=== PATIENT | female | born 1990 | race Caucasian/White ===

== ENCOUNTER 2016-08-16 10:24 | Emergency (ER) | payer MEDICAID, OTHER ==
[~2016-08-16] VITALS: Ht 157.5 cm; Wt 90.0 kg
[~2016-08-16 10:24] MED LIST: BACITUD TOP; BACTDS PO; CEPH-443 PO; CLIN-73 PO; LORA-441 PO; MUPI22OI2 TOP; PREN-29 PO
[2016-08-16 10:27] VITALS: Ht 157.5 cm; Wt 90.0 kg
[2016-08-16] MEDS ORDERED: ONDANSETRON (ODT) 4 MG TAB ODT STA (11:20)
--- NOTE | 2016-08-16 11:23 | ERD ---
ER Documentation Chief Complaint Date/Time DATE: 08/16/16 TIME: 11:21 Chief Complaint nevarez/ right ear pain x 3 days HPI This is a 25-year-old female that presents to the ER with right-sided headache for the last 3 days. Patient has a past medical history of migraine headaches. Patient states that headache is severe and constant and radiates down to her right ear and her right jaw and into the right side of her neck. Patient does admit to photophobia. Headache has been intermittent over the last 3 days patient takes Excedrin and this helps headache for a few hours, however headache always comes back. Headache is described as a sharp stabbing pain. Patient admits to nausea however denies vomiting. She denies any neck stiffness. Patient denies any vision loss or vision changes. She denies any head trauma. ROS 12 point review of systems was done, all negative except per HPI. Medications Home Meds Active Scripts Hydrocodone/Acetaminophen ([place] 5-325 Tablet) 1 Each Tablet, 1 TAB PO Q6H Y for PAIN, #20 TAB Prov:VAHE ASHER 08/16/16 Ibuprofen* (Motrin*) 600 Mg Tab, 600 MG PO Q6, #30 TAB Prov:VAHE ASHER 08/16/16 Sulfamethoxazole-Trimethoprim* (Bactrim* DS) 800-160 Mg Tab, 1 TAB PO BID for 7 Days, TAB Prov:JOHANNE NDIAYE PA-C 11/09/15 Lorazepam* (Ativan*) 0.5 Mg Tablet, 0.5 MG PO Q8, #4 TAB Prov:JOHANNE NDIAYE PA-C 07/17/15 Sulfamethoxazole-Trimethoprim* (Bactrim* DS) 800-160 Mg Tab, 1 TAB PO BID for 10 Days, TAB Prov:JOHANNE NDIAYE PA-C 03/08/15 Cephalexin* (Keflex*) 500 Mg Capsule, 500 MG PO QID for 7 Days, CAP Prov:VANESSA HALL MD 02/22/15 Mupirocin* (Bactroban*) 2% -22 Gram Oint...g., 1 APPLIC TOP BID for 7 Days, EA Prov:VANESSA HALL MD 02/22/15 Bacitracin* (Bacitracin Oint (UD)*) 1 Applic Oint, 1 APPLIC TOP ONCE, #30 PKT APPLY TO Prov:RANGEL,LA M MD 02/21/15 Clindamycin Hcl* (Clindamycin Hcl*) 300 Mg Capsule, 300 MG PO QID for 10 Days, CAP Prov:LA RANGEL MD 02/21/15 Reported Medications Vit-Fe Fumarate-FA* (Juan Tablet*) 1 Tab Tablet, 1 TAB PO DAILY, TAB 11/16/14 Allergies Allergies: Coded Allergies: Penicillins (Verified Allergy, Mild, RASH, 03/08/15) PMhx/Soc Medical and Surgical Hx: pt denies Medical Hx, pt denies Surgical Hx History of Surgery: No Anesthesia Reaction: No Hx Neurological Disorder: No Hx Respiratory Disorders: No Hx Cardiac Disorders: No Hx Psychiatric Problems: No Hx Miscellaneous Medical Probl: No Hx Alcohol Use: No Hx Substance Use: No Hx Tobacco Use: No Physical Exam Vitals Vital Signs Date Time Temp Pulse Resp B/P Pulse Ox O2 Delivery O2 Flow Rate FiO2 08/16/16 10:27 98.1 89 18 117/82 99 Physical Exam GENERAL: The patient is well developed and appropriate for usual state of health , in no apparent distress. HEENT: Atraumatic. Conjunctivae are pink. Pupils equal, round, and reactive to light. Extraocular muscles are grossly intact. Bilateral tympanic membranes are clear with no evidence of erythema, bulging or perforation. No sinus tenderness. NECK: C-spine is soft and supple. There is no cervical lymphadenopathy. CHEST: Clear to auscultation bilaterally. There are no rales, wheezes or rhonchi. HEART: Regular rate and rhythm. No murmurs, clicks, rubs or gallops. EXTREMITIES: Equal pulses bilaterally. There is no peripheral clubbing, cyanosis or edema. No focal swelling or erythema. Full range of motion. Grossly neurovascularly intact. NEURO: Alert and oriented. Cranial nerves II through XII are intact. Motor strength in all 4 extremities with 5/5 strength. Sensation grossly intact. Normal speech and gait. Negative Rhomberg. +2 DTRs. SKIN: There is no apparent rash or petechia. The skin is warm and dry. Result Diagram: 08/16/16 1245 08/16/16 1245 Results 24 hrs Laboratory Tests Test 08/16/16 12:45 08/16/16 12:51 Alanine Aminotransferase (ALT/SGPT) 35IU/L Albumin 3.9g/dl Albumin/Globulin Ratio 1.05 Alkaline Phosphatase 96IU/L Anion Gap 18 Aspartate Amino Transf (AST/SGOT) 21IU/L Basophils # 0.010^3/ul Basophils % 0.3% Blood Morphology Comment Blood Urea Nitrogen 7mg/dl Calcium Level 9.2mg/dl Carbon Dioxide Level 23mmol/L Chloride Level 105mmol/L Creatinine 0.53mg/dl Direct Bilirubin 0.00mg/dl Eosinophils # 0.110^3/ul Eosinophils % 0.9% Globulin 3.70g/dl Glucose Level 97mg/dl Hematocrit 40.3% Hemoglobin 13.4g/dl Indirect Bilirubin 0.1mg/dl Lymphocytes # 2.410^3/ul Lymphocytes % 26.3% Mean Corpuscular Hemoglobin 28.8pg Mean Corpuscular Hemoglobin Concent 33.4g/dl Mean Corpuscular Volume 86.3fl Mean Platelet Volume 9.4fl Monocytes # 0.510^3/ul Monocytes % 5.2% Neutrophils # 6.210^3/ul Neutrophils % 67.3% Nucleated Red Blood Cells # 0.010^3/ul Nucleated Red Blood Cells % 0.0/100WBC Platelet Count 91171^3/UL Potassium Level 3.9mmol/L Red Blood Count 4.6710^6/ul Red Cell Distribution Width 14.0% Sodium Level 142mmol/L Total Bilirubin 0.1mg/dl Total Protein 7.6g/dl White Blood Count 9.310^3/ul Urine Bilirubin NEGATIVE Urine Clarity HAZY Urine Color LT. YELLOW Urine Glucose NEGATIVE% Urine Hemoglobin NEGATIVE Urine Ketones NEGATIVE Urine Leukocyte Esterase TRACE Urine Microscopic RBC NONE SEEN/HPF Urine Microscopic WBC 0-2/HPF Urine Nitrite NEGATIVE Urine Specific [place] 1.020 Urine Squamous Epithelial Cells MODERATE Urine Total Protein NEGATIVE Urine Urobilinogen 0.2 E.U./dL Urine pH 6.0 Current Medications Medications (Trade) Dose Ordered Sig/Laura Route PRN Reason Start Time Stop Time Status Last Admin Dose Admin Naproxen (Naprosyn) 500 mg ONCE ONCE PO 08/16/16 11:30 08/16/16 11:31 DC 08/16/16 12:30 Ondansetron HCl (Zofran Odt) 4 mg ONCE STAT ODT 08/16/16 11:20 08/16/16 11:21 DC 08/16/16 11:24 Acetaminophen/ Hydrocodone Bitart ([place] (5/325)) 1 tab ONCE ONCE PO 08/16/16 11:30 08/16/16 11:31 DC 08/16/16 11:24 Metoclopramide HCl (Reglan) 10 mg ONCE ONCE IV 08/16/16 12:30 08/16/16 12:31 DC 08/16/16 12:25 Diphenhydramine HCl 25 mg 25 mg ONCE ONCE IV 08/16/16 12:30 08/16/16 12:31 DC 08/16/16 12:26 Sodium Chloride (NS) 1,000 ml @ 1,000 mls/hr Q1H ONCE IV 08/16/16 12:30 08/16/16 13:29 DC 08/16/16 12:25 Procedures/MDM Differential Diagnosis includes but is not limited to; tension headache, migraine headache, cluster headache, sinus headache, nonspecific febrile headache, trigeminal neurologia, subdural hematoma, subarachnoid bleeding, meningitis, encephalitis. Patient is neurologically intact with no focal neurological deficits. This is likely a migraine headache. Patient initially refused IV line, however p.o. meds did not work. Patient felt significantly better with IV line and medications. She will be sent home with ibuprofen with [place]. Patient is afebrile and well-appearing. I doubt infectious etiology. Patient needs to follow-up with her primary care doctor within 1-2 days return to ER sooner if symptoms. Should my medical decision making with the patient she understands and agrees with plan. Departure Diagnosis: Primary Impression: Headache Condition: Stable VAHE ASHER Aug 16, 2016 11:23
[2016-08-16] MEDS ORDERED: HYDROCODONE/APAP (5/325) TAB PO ONE (11:30)
[2016-08-16] MEDS ORDERED: NAPROXEN 500 MG TAB PO ONE (11:30)
[2016-08-16] MEDS ORDERED: SOD CHLORIDE 0.9% 1,000 ML IV ONE (12:30)
[2016-08-16] MEDS ORDERED: METOCLOPRAMIDE 10 MG INJ IV ONE (12:30)
[2016-08-16] MEDS ORDERED: DIPHENHYDRAMINE 50 MG INJ IV ONE (12:30)
[2016-08-16 13:01] LABS: BASOPHILS % 0.3 % (0.0-2.0); EOSINOPHILS # 0.1 10^3/ul (0.0-0.5); EOSINOPHILS % 0.9 % (0.0-7.0); HEMATOCRIT 40.3 % (37.0-47.0); HEMOGLOBIN 13.4 g/dl (12.0-16.0); LYMPHOCYTES # 2.4 10^3/ul (0.8-2.9); LYMPHOCYTES % 26.3 % (15.0-51.0); MEAN CORPUSCULAR HEMOGLOBIN 28.8 pg (29.0-33.0); MEAN CORPUSCULAR HGB CONC 33.4 g/dl (32.0-37.0); MEAN CORPUSCULAR VOLUME 86.3 fl (82.0-101.0); MEAN PLATELET VOLUME 9.4 fl (7.4-10.4); MONOCYTE # 0.5 10^3/ul (0.3-0.9); MONOCYTES % 5.2 % (0.0-11.0); NEUTROPHIL # 6.2 10^3/ul (1.6-7.5); NEUTROPHILS % 67.3 % (39.0-77.0); PLATELET COUNT 235 10^3/UL (140-440); RED BLOOD COUNT 4.67 10^6/ul (4.20-5.40); UNCORRECTED WBC 9.3 10^3/ul (4.8-10.8); WHITE BLOOD COUNT 9.3 10^3/ul (4.8-10.8)
[2016-08-16 13:02] LABS: ADD UMIC YES; URINE BILIRUBIN (Dip) NEGATIVE (NEGATIVE); URINE BLOOD (Dip) NEGATIVE (NEGATIVE); URINE COLOR LT. YELLOW (YELLOW); URINE GLUCOSE (Dip) NEGATIVE (NEGATIVE); URINE KETONES (Dip) NEGATIVE (NEGATIVE); URINE LEUKOCYTE ESTERASE (Dip) TRACE (NEGATIVE); URINE NITRITE (Dip) NEGATIVE (NEGATIVE); URINE TOTAL PROTEIN (Dip) NEGATIVE (NEGATIVE); URINE UROBILINOGEN (Dip) 0.2 E.U./dL (0.1-1.0)
[2016-08-16 13:04] LABS: CONDITION 1
[2016-08-16 13:09] LABS: ALBUMIN 3.9 g/dl (3.3-4.9); POTASSIUM 3.9 mmol/L (3.5-5.1)
[2016-08-16 13:11] LABS: CREATININE 0.53 mg/dl (0.44-1.00)
[2016-08-16 13:12] LABS: ALBUMIN/GLOBULIN RATIO 1.05; BILIRUBIN,INDIRECT 0.1 mg/dl (0-1.1); BILIRUBIN,TOTAL 0.1 mg/dl (0.2-1.3); CALCIUM 9.2 mg/dl (8.4-10.2); TOTAL PROTEIN 7.6 g/dl (6.1-8.1)
[2016-08-16 13:27] LABS: SQUAMOUS EPITHELIAL CELL,UR MODERATE; URINE RBCS NONE SEEN /HPF ([, 0])
[2016-08-16] MEDS ORDERED: HYDR-906 PO (14:10)
[2016-08-16] MEDS ORDERED: IBUP-1542 PO (14:10)
[2016-08-16 14:48] VITALS: BP 144/68; PULSE 77; RESP 18
== END 2016-08-16 15:58 | disposition home or self-care (01) ==
LOC: FTE 10:24
DX: R51 Headache (principal)
CPT/HCPCS: 80053; 81001; 85025; 87400; 96374; 96375; J1200; J2765; J7030; Z7502; Z7610; 81003

== ENCOUNTER 2016-08-30 12:17 | Emergency (ER) | payer MEDICAID ==
[~2016-08-30] VITALS: Wt 102.0 kg
[~2016-08-30 12:17] MED LIST changes: +HYDR-906 PO; +IBUP-1542 PO
--- NOTE | 2016-08-30 14:04 | RADRPT ---
PROCEDURE: XR Right Wrist with Navicular View CLINICAL INDICATION: Bony abnormality, pain to right wrist TECHNIQUE: AP, lateral, and oblique views as well as a carpal navicular view were submitted. COMPARISON: None FINDINGS: Osseous structures: appear well mineralized and intact with no fracture or destructive process iden tified. Joint spaces: are well maintained with no significant erosions or spurring identified. Soft tissues: There is a 1.5 cm soft tissue density located ventral lateral to the distal radial met aphysis which could represent a mass. IMPRESSION: 1. 1.5 cm soft tissue density seen ventral lateral to the distal radial metaphysis possibly represe nting a mass. 2. Otherwise, unremarkable right wrist with navicular view. Physician Sanjay Date Time Electronically viewed and signed by Physician Sanjay on 08/30/2016 14:04 /
--- NOTE | 2016-08-30 14:05 | RADRPT ---
PROCEDURE: XR Right Hand CLINICAL INDICATION: Bony abnormality/pain the right wrist TECHNIQUE: AP, oblique, and lateral radiographs were submitted. COMPARISON: None FINDINGS: Osseous structures: appear well mineralized and intact with no fracture or destructive process iden tified. Joint spaces: are well maintained, with no significant spurring, erosion or joint effusion evident. Soft tissues: A 1.5 cm soft tissue density is seen ventral lateral to the distal radial metaphysis p ossibly representing a mass. IMPRESSION: 1. Possible soft tissue mass measuring 1.5 cm anterolateral to the distal radial metaphysis. 2. Otherwise, unremarkable right hand series. Physician Sanjay Date Time Electronically viewed and signed by Physician Sanjay on 08/30/2016 14:05 /
--- NOTE | 2016-08-30 14:15 | ERD ---
ER Documentation Chief Complaint Date/Time DATE: 08/30/16 TIME: 14:10 Chief Complaint right wrist pain/swelling [id number] worsening pain x1week HPI This patient is a 26-year-old female with no significant medical history presenting to the emergency department for right hand and right wrist pain which is been ongoing for 1 month. Patient states she noticed a large hard mass on her right wrist about 2 months ago and has slowly been getting larger. She reports 5 out of 10 pain on a pain scale. She denies any numbness, tingling , loss of function, injury, fevers, chills, or other symptoms at this time. ROS All systems reviewed and are negative except as per history of present illness. Medications Home Meds Active Scripts Hydrocodone/Acetaminophen ([place] 5-325 Tablet) 1 Each Tablet, 1 TAB PO Q6H Y for PAIN, #20 TAB Prov:VAHE ASHER 08/16/16 Ibuprofen* (Motrin*) 600 Mg Tab, 600 MG PO Q6, #30 TAB Prov:VAHE ASHER 08/16/16 Sulfamethoxazole-Trimethoprim* (Bactrim* DS) 800-160 Mg Tab, 1 TAB PO BID for 7 Days, TAB Prov:JOHANNE NDIAYE PA-C 11/09/15 Lorazepam* (Ativan*) 0.5 Mg Tablet, 0.5 MG PO Q8, #4 TAB Prov:JOHANNE NDIAYE PA-C 07/17/15 Sulfamethoxazole-Trimethoprim* (Bactrim* DS) 800-160 Mg Tab, 1 TAB PO BID for 10 Days, TAB Prov:JOHANNE NDIAYE PA-C 03/08/15 Cephalexin* (Keflex*) 500 Mg Capsule, 500 MG PO QID for 7 Days, CAP Prov:VANESSA HALL MD 02/22/15 Mupirocin* (Bactroban*) 2% -22 Gram Oint...g., 1 APPLIC TOP BID for 7 Days, EA Prov:VANESSA HALL MD 02/22/15 Bacitracin* (Bacitracin Oint (UD)*) 1 Applic Oint, 1 APPLIC TOP ONCE, #30 PKT APPLY TO Prov:LA RANGEL MD 02/21/15 Clindamycin Hcl* (Clindamycin Hcl*) 300 Mg Capsule, 300 MG PO QID for 10 Days, CAP Prov:LA RANGEL MD 02/21/15 Reported Medications Vit-Fe Fumarate-FA* (Juan Tablet*) 1 Tab Tablet, 1 TAB PO DAILY, TAB 11/16/14 Allergies Allergies: Coded Allergies: Penicillins (Verified Allergy, Mild, RASH, 03/08/15) PMhx/Soc History of Surgery: No Anesthesia Reaction: No Hx Neurological Disorder: No Hx Respiratory Disorders: No Hx Cardiac Disorders: No Hx Psychiatric Problems: No Hx Miscellaneous Medical Probl: No Hx Alcohol Use: No Hx Substance Use: No Hx Tobacco Use: No FmHx Noncontributory for chief complaint Physical Exam Vitals Vital Signs Date Time Temp Pulse Resp B/P Pulse Ox O2 Delivery O2 Flow Rate FiO2 08/30/16 12:20 98.5 90 12 122/84 98 Physical Exam INITIAL VITAL SIGNS: Reviewed by me. GENERAL: Alert and interactive. No acute distress. HEAD: Head is normocephalic and atraumatic. EYES: EOMI. No scleral icterus. No conjunctival injection. ENT: Moist mucosa. NECK: Supple. Full range of motion. RESPIRATORY: Normal respiratory effort. Clear breath sounds bilaterally. No wheezing, rales, or rhonchi. CV: Regular rate and rhythm. Normal S1 S2. No S3 or S4. No murmurs. ABDOMEN: Soft, non-distended, non-tender. No guarding. No rebound. No masses. EXTREMITIES: There is a hard mass palpated on the distal radial metaphysis of the right wrist. There is no tenderness to palpation. There is no open deformity. SKIN: Warm and dry. NEUROLOGIC: Alert and oriented x 4. Speech is normal. Moves all extremities equally. No motor or sensory deficits noted. Procedures/MDM 18-year-old female presents secondary to complaints of slight pain and mass palpated on the right wrist. On physical examination there is a bony protrusion and slight tenderness to palpation over the radial metaphysis of the right wrist. I have advised the patient she should follow-up with orthopedics and she was given referral to do so. Patient has no loss of function, tingling , numbness, or other concerning symptoms at this time. I believe she is stable for outpatient management and follow-up with service specialist. She agrees with the plan and diagnosis. All questions and concerns were addressed at this time. Departure Diagnosis: Primary Impression: Pain in wrist Additional Impression: Mass of right wrist Condition: Stable Referrals: KAITY DEWEY MD, DAVID MD BALFOUR, GEORGE MD Additional Instructions: Follow-up with your primary care physician within 1 week. Return to the emergency department immediately should you have any new or worsening symptoms, uncontrolled fevers, or other unexplained symptoms. Take all medications as directed. FAUSTINO PIERCE PA-C Aug 30, 2016 14:15
[2016-08-30] MEDS ORDERED: NAPR-260 PO (14:17)
== END 2016-08-30 14:24 | disposition home or self-care (01) ==
LOC: FTE 12:17
DX: M25.531 Pain in right wrist (principal); R22.31 Localized swelling, mass and lump, right upper limb
CPT/HCPCS: 73110; 73130; Z7502

== ENCOUNTER 2016-10-22 09:53 | Emergency (ER) | payer MEDICAID ==
[~2016-10-22] VITALS: Ht 160 cm; Wt 89.9 kg
[~2016-10-22 09:53] MED LIST changes: +NAPR-260 PO
[2016-10-22 09:59] VITALS: Ht 160 cm; Wt 89.9 kg
[2016-10-22 12:24] LABS: URINE BLOOD (Dip) POC 3+ (NEGATIVE)
[2016-10-22] MEDS ORDERED: NITR-58 PO ×2 (12:28→12:31)
--- NOTE | 2016-10-22 12:56 | ERD ---
ER Documentation Chief Complaint Date/Time DATE: 10/22/16 TIME: 12:50 Chief Complaint dysuria today HPI Patient is a 26 year old female who presents to the ED with dysuria, urgency 1 day. She also stated that she had an episode of hematuria today. She states that she has not had a history of UTIs in the past. She denies abdominal pain, nausea, diarrhea or constipation. Denies pelvic pain.Denies fever or chills. Denies headache, dizziness, chest pain, shortness of breath. Denies leg pain or swelling. Denies recent travel, recent URIs, recent use of OCPs or recent surgeries. She is currently sexually active with her . ROS All systems reviewed and are negative except as per history of present illness. Medications Home Meds Active Scripts Nitrofurantoin Monohyd Macrocr* (Macrobid*) 100 Mg Capsr, 100 MG PO BID for 5 Days, #10 CAP Prov:CHE DEE PA-C 10/22/16 Naproxen* (Naprosyn*) 500 Mg Tablet, 500 MG PO BID Y for PAIN AND/OR INFLAMMATION, #20 TAB Prov:FAUSTINO PIERCE PA-C 08/30/16 Hydrocodone/Acetaminophen ([place] 5-325 Tablet) 1 Each Tablet, 1 TAB PO Q6H Y for PAIN, #20 TAB Prov:VAHE ASHER 08/16/16 Ibuprofen* (Motrin*) 600 Mg Tab, 600 MG PO Q6, #30 TAB Prov:VAHE ASHER 08/16/16 Sulfamethoxazole-Trimethoprim* (Bactrim* DS) 800-160 Mg Tab, 1 TAB PO BID for 7 Days, TAB Prov:JOHANNE NDIAYE PA-C 11/09/15 Lorazepam* (Ativan*) 0.5 Mg Tablet, 0.5 MG PO Q8, #4 TAB Prov:JOHANNE NDIAYE PA-C 07/17/15 Sulfamethoxazole-Trimethoprim* (Bactrim* DS) 800-160 Mg Tab, 1 TAB PO BID for 10 Days, TAB Prov:JOHANNE NDIAYE PA-C 03/08/15 Cephalexin* (Keflex*) 500 Mg Capsule, 500 MG PO QID for 7 Days, CAP Prov:VANESSA HALL MD 02/22/15 Mupirocin* (Bactroban*) 2% -22 Gram Oint...g., 1 APPLIC TOP BID for 7 Days, EA Prov:VANESSA HALL MD 02/22/15 Bacitracin* (Bacitracin Oint (UD)*) 1 Applic Oint, 1 APPLIC TOP ONCE, #30 PKT APPLY TO Prov:LA RANGEL MD 02/21/15 Clindamycin Hcl* (Clindamycin Hcl*) 300 Mg Capsule, 300 MG PO QID for 10 Days, CAP Prov:LA RANGEL MD 02/21/15 Reported Medications Vit-Fe Fumarate-FA* (Juan Tablet*) 1 Tab Tablet, 1 TAB PO DAILY, TAB 11/16/14 Allergies Allergies: Coded Allergies: Penicillins (Verified Allergy, Mild, RASH, 10/22/16) PMhx/Soc History of Surgery: Yes (C SECTION ) Anesthesia Reaction: No Hx Neurological Disorder: No Hx Respiratory Disorders: No Hx Cardiac Disorders: No Hx Psychiatric Problems: No Hx Miscellaneous Medical Probl: No Hx Alcohol Use: No Hx Substance Use: No Hx Tobacco Use: No Smoking Status: Never smoker FmHx Family History: No coronary disease, No diabetes, No other Physical Exam Vitals Vital Signs Date Time Temp Pulse Resp B/P Pulse Ox O2 Delivery O2 Flow Rate FiO2 10/22/16 09:59 98.1 97 20 120/76 99 Physical Exam GENERAL: Well-developed, well-nourished female. Appears in no acute distress. LUNG: Clear to auscultation bilaterally. No rhonchi, wheezing, rales or coarse breath sounds. HEART: Regular rate and rhythm. No murmurs, rubs or gallops. ABDOMEN: No scars, ecchymosis or rashes noted. Soft, nontender, and nondistended. Positive bowel sounds in all four quadrants. No rebound tenderness , no guarding. (-) McBurneys point tenderness. No CVA tenderness. suprapubic tenderness. Extremities: Equal pulses bilaterally. No peripheral clubbing, cyanosis or edema. No unilateral leg swelling. NEUROLOGIC: Alert and oriented. Moving all four extremities. 5/5 strength in all extremities. Normal speech. Steady gait. SKIN: Normal color. Warm and dry. No rashes or lesions. Capillary refill < 2 seconds Results 24 hrs Laboratory Tests Test 10/22/16 12:22 Bedside Urine pH (LAB) 7.0 Bedside Urine Protein (LAB) 2+ Bedside Urine Glucose (UA) Negative Bedside Urine Ketones (LAB) Negative Bedside Urine Blood 3+ Bedside Urine Nitrite (LAB) Negative Bedside Urine Leukocyte Esterase (L 3+ Procedures/MDM ER COURSE: I kept the patient and/or family informed of laboratory and diagnostic imaging results throughout the emergency room course. MEDICAL DECISION MAKING: This is a 26-year-old female who presents with dysuria, urgency 1 day. Vital signs were reviewed. Patient is afebrile. Patient is not hypoxic. Patient is not toxic or ill-appearing. Patient has a UTI. Her urinalysis shows 3+ leukocytes with hematuria and no nitrites. Urine test is negative. Low suspicion for ovarian torsion, PID, tuboovarian abscess, ectopic , bowel obstruction, pyelonephritis, appendicitis, cervicitis, septic , molar , HELLP syndrome, preeclampsia, eclampsia, placenta previa, placenta abruptia. Low suspicion for nephrolithiasis, obstructive stone, septic stone. DISCHARGE: At this time, patient is stable for discharge and outpatient management with no new complaints during the ER course. Patient was sent home with Macrobid. Patient will be discharged home with instructions to recheck for new or worsening symptoms such as fever, nausea, weakness, LOC and to follow up with primary care in the next 1-2 days. Patient was advised to return to the ER for any new or worsening symptoms. Plan was discussed and patient and/or family understands and agrees. Home instructions were given. Departure Diagnosis: Primary Impression: Dysuria Condition: Stable Patient Instructions: Dysuria Referrals: DOCTOR,NOT ON STAFF Additional Instructions: Call your primary care doctor TOMORROW for an appointment during the next 1-2 days.See the doctor sooner or return here if your condition worsens before your appointment time. CHE DEE PA-C Oct 22, 2016 12:56
[2016-10-22] MEDS ORDERED: IBUPROFEN 600 MG TAB PO ONE (13:30)
[2016-10-22 14:00] VITALS: BP 134/87; PULSE 85; RESP 18; TEMP 97.7
== END 2016-10-22 14:00 | disposition home or self-care (01) ==
LOC: FTE 09:53
DX: R30.0 Dysuria (principal)
CPT/HCPCS: 81003; Z7502; Z7610; 99283

== ENCOUNTER 2016-10-28 09:50 | Emergency (ER) | payer SELFPAY ==
[~2016-10-28] VITALS: Ht 154.9 cm; Wt 99.5 kg
[~2016-10-28 09:50] MED LIST changes: +NITR-58 PO
[2016-10-28 09:54] VITALS: Ht 154.9 cm; Wt 99.5 kg
[2016-10-28] MEDS ORDERED: ONDANSETRON (ODT) 4 MG TAB ODT STA (10:38)
[2016-10-28 10:47] LABS: URINE BLOOD (Dip) POC Negative (NEGATIVE)
[2016-10-28] MEDS ORDERED: ONDA8TAB14 PO (11:29)
[2016-10-28] MEDS ORDERED: BISM262O23 PO (11:30)
--- NOTE | 2016-10-28 11:32 | ERD ---
ER Documentation Chief Complaint Date/Time DATE: 10/28/16 TIME: 11:31 Chief Complaint diarrhea since last night x6 since am w/nausea HPI This 18-year-old female presents with vomiting diarrhea since last night. Is nonbilious nonbloody vomiting and no blood or mucus in the diarrhea. There is child at home of diarrhea. She has had no fevers or foreign travel. She denies abdominal pain, urinary complaints. She is taking unknown antibiotics for UTI for 3 days. ROS All systems reviewed and are negative except as per history of present illness. Medications Home Meds Active Scripts Bismuth Subsalicylate* (Pepto-Bismol*) 262 Mg/15 Ml Oral.susp, 15 ML PO Q3H Y for DIARRHEA for 4 Days, ML Prov:DEANDRE HODGES MD 10/28/16 Ondansetron (Ondansetron Odt) 8 Mg Tab.rapdis, 8 MG PO Q6H Y for NAUSEA AND/OR VOMITING, #8 TAB Prov:DEANDRE HODGES MD 10/28/16 Nitrofurantoin Monohyd Macrocr* (Macrobid*) 100 Mg Capsr, 100 MG PO BID for 5 Days, #10 CAP Prov:CHE DEE PA-C 10/22/16 Naproxen* (Naprosyn*) 500 Mg Tablet, 500 MG PO BID Y for PAIN AND/OR INFLAMMATION, #20 TAB Prov:FAUSTINO PIERCEC 08/30/16 Hydrocodone/Acetaminophen ([place] 5-325 Tablet) 1 Each Tablet, 1 TAB PO Q6H Y for PAIN, #20 TAB Prov:VAHE ASHER 08/16/16 Ibuprofen* (Motrin*) 600 Mg Tab, 600 MG PO Q6, #30 TAB Prov:VAHE ASHER 08/16/16 Sulfamethoxazole-Trimethoprim* (Bactrim* DS) 800-160 Mg Tab, 1 TAB PO BID for 7 Days, TAB Prov:JOHANNE NDIAYE PA-C 11/09/15 Lorazepam* (Ativan*) 0.5 Mg Tablet, 0.5 MG PO Q8, #4 TAB Prov:JOHANNE NDIAYE PA-C 07/17/15 Sulfamethoxazole-Trimethoprim* (Bactrim* DS) 800-160 Mg Tab, 1 TAB PO BID for 10 Days, TAB Prov:JOHANNE NDIAYE PA-C 03/08/15 Cephalexin* (Keflex*) 500 Mg Capsule, 500 MG PO QID for 7 Days, CAP Prov:VANESSA HALL MD 02/22/15 Mupirocin* (Bactroban*) 2% -22 Gram Oint...g., 1 APPLIC TOP BID for 7 Days, EA Prov:VANESSA HALL MD 02/22/15 Bacitracin* (Bacitracin Oint (UD)*) 1 Applic Oint, 1 APPLIC TOP ONCE, #30 PKT APPLY TO Prov:LA RANGEL MD 02/21/15 Clindamycin Hcl* (Clindamycin Hcl*) 300 Mg Capsule, 300 MG PO QID for 10 Days, CAP Prov:LA RANGEL MD 02/21/15 Reported Medications Vit-Fe Fumarate-FA* (Juan Tablet*) 1 Tab Tablet, 1 TAB PO DAILY, TAB 11/16/14 Allergies Allergies: Coded Allergies: Penicillins (Verified Allergy, Mild, RASH, 10/22/16) PMhx/Soc History of Surgery: Yes (C SECTION ) Anesthesia Reaction: No Hx Neurological Disorder: No Hx Respiratory Disorders: No Hx Cardiac Disorders: No Hx Psychiatric Problems: No Hx Miscellaneous Medical Probl: No Hx Alcohol Use: No Hx Substance Use: No Hx Tobacco Use: No Smoking Status: Never smoker Physical Exam Vitals Vital Signs Date Time Temp Pulse Resp B/P Pulse Ox O2 Delivery O2 Flow Rate FiO2 10/28/16 09:54 98.7 103 20 110/74 98 Physical Exam Const: [] Alert, [id number] per Head: Atraumatic Eyes: Normal Conjunctiva ENT: Normal External Ears, Nose and Mouth. Neck: Full range of motion..~ No meningismus. Resp: Clear to auscultation bilaterally Cardio: Regular rate and rhythm, no murmurs Abd: Soft, non tender, non distended. Normal bowel sounds Skin: No petechiae or rashes Back: No midline or flank tenderness Ext: No cyanosis, or edema Neur: Awake and alert Psych: Normal Mood and Affect Results 24 hrs Laboratory Tests Test 10/28/16 10:46 Bedside Urine pH (LAB) 5.5 Bedside Urine Protein (LAB) Negative Bedside Urine Glucose (UA) Negative Bedside Urine Ketones (LAB) Negative Bedside Urine Blood Negative Bedside Urine Nitrite (LAB) Negative Bedside Urine Leukocyte Esterase (L Negative Current Medications Medications (Trade) Dose Ordered Sig/Laura Route PRN Reason Start Time Stop Time Status Last Admin Dose Admin Ondansetron HCl (Zofran Odt) 8 mg ONCE STAT ODT 10/28/16 10:38 10/28/16 10:40 DC 10/28/16 10:43 Procedures/MDM HCG is negative and urine is negative for leukocytes, nitrites, blood glucose. Patient was given Zofran 8 mg by mouth and had no further episodes of vomiting. Patient presents with vomiting diarrhea of one days duration without evidence of obstruction, signs of acute abdomen, hepatobiliary disease, UTI. I suspect she has a gastrointestinal virus will be treated with Pepto-Bismol and Zofran. She is advised to return the next 8-12 hours for vomitus by treatment, pain, blood, new worsening symptoms with primary doctor. The patient was stable with no new complaints during the ER course. Clinically, there is no current evidence to suggest meningitis, sepsis, acute abdomen, pneumonia, acute coronary syndrome, pulmonary embolism, or any other emergent condition appearing to require further evaluation or hospitalization. The patient should certainly return for any new or worsening symptoms per the aftercare instructions. They should otherwise follow-up with her primary care doctor for reevaluation this week. Departure Diagnosis: Primary Impression: Vomiting Vomiting type: unspecified Vomiting Intractability: unspecified Nausea presence: unspecified Qualified Code: R11.10 - Vomiting, intractability of vomiting not specified, presence of nausea not specified, unspecified vomiting type Additional Impression: Diarrhea Diarrhea type: unspecified type Qualified Code: R19.7 - Diarrhea, unspecified type Condition: Stable Patient Instructions: Vomiting And Diarrhea, Nonspecific (Adult) Additional Instructions: Likely viral illness. Recheck for new or worsening symptoms with primary care doctor. DEANDRE HODGES MD Oct 28, 2016 11:32
== END 2016-10-28 11:52 | disposition home or self-care (01) ==
LOC: FTE 09:50
DX: R11.10 Vomiting, unspecified (principal); R19.7 Diarrhea, unspecified
CPT/HCPCS: 81003; 99283